=== PATIENT | male | born 1945 | race Caucasian/White ===

== ENCOUNTER 2017-02-03 11:17 | Outpatient (CLI) | payer MEDICARE, OTHER | END 2017-02-03 11:18 | disposition home or self-care (01) | DX: I10 Essential (primary) hypertension (principal); Z12.5 Encounter for screening for malignant neoplasm of prostate | CPT/HCPCS: 36415; 80053; 80061; 85025; G0103 ==

== ENCOUNTER 2017-02-22 15:00 | Outpatient (CLI) | payer MEDICARE, OTHER | END 2017-02-22 15:01 | disposition home or self-care (01) | DX: I71.4 Abdominal aortic aneurysm, without rupture (principal); I77.9 Disorder of arteries and arterioles, unspecified ==

== ENCOUNTER 2018-07-27 14:38 | Outpatient (CLI) | payer MEDICARE, OTHER ==
[2018-07-27 18:45] LABS: BASOPHILS # (AUTO) 0.1 10^3/uL (0.0-0.1); BASOPHILS % (AUTO) 1.1 %; EOSINOPHILS # (AUTO) 0.1 10^3/uL (0.0-0.7); EOSINOPHILS % (AUTO) 2.4 %; HGB - HEMOGLOBIN 12.5 g/dL (14.0-18.0); LYMPHOCYTES # (AUTO) 1.5 10^3/uL (1.5-3.5); LYMPHOCYTES % (AUTO) 26.9 %; MEAN CORPUSCULAR HEMOGLOBIN 32.2 pg (27.0-31.0); MEAN CORPUSCULAR HGB CONC 34.5 g/dL (32.0-36.0); MEAN CORPUSCULAR VOLUME 93.4 fL (80.0-94.0); MEAN PLATELET VOLUME 10.4 fL (7.4-11.4); MONOCYTES # (AUTO) 0.4 10^3/uL (0.0-1.0); MONOCYTES % (AUTO) 7.8 %; NEUTROPHILS # (AUTO) 3.5 10^3/uL (1.5-6.6); NEUTROPHILS % (AUTO) 61.8 %; PLT - PLATELET COUNT 216 10^3/uL (130-450); RED BLOOD COUNT 3.87 10^6/uL (4.70-6.10); RED CELL DISTRIBUTION WIDTH 12.7 % (12.0-15.0); WHITE BLOOD COUNT 5.7 x10^3/uL (4.8-10.8)
[2018-07-27 18:59] LABS: ALBUMIN 4.3 g/dL (3.2-5.5); ALBUMIN/GLOBULIN RATIO 1.6 (1.0-2.2); ALKALINE PHOSPHATASE 66 IU/L (42-121); ALT ALANINE AMINOTRANSFERASE 16 IU/L (10-60); AST ASPARTATE AMINOTRANSFERASE 22 IU/L (10-42); BILIRUBIN,TOTAL 1.1 mg/dL (0.2-1.0); BUN - BLOOD UREA NITROGEN 13 mg/dL (6-20); CALCIUM 9.1 mg/dL (8.5-10.3); CARBON DIOXIDE - CO2 27 mmol/L (21-32); CHLORIDE 104 mmol/L (101-111); CHOL/HDL RATIO 3.3 (<5.0); CHOLESTEROL 157 mg/dL; CREATININE 0.7 mg/dL (0.6-1.2); GFR - MDRD 111 (>89); GLUCOSE 119 mg/dL (70-100); HDL CHOLESTEROL 47 mg/dL; LDL CHOLESTEROL,CALCULATED 97 mg/dL; LDL/HDL RATIO 2.1 (<3.6); SODIUM 137 mmol/L (135-145); VLDL CHOLESTEROL 13 mg/dL
== END 2018-07-27 14:39 | disposition home or self-care (01) ==
LOC: LAB.WCP 14:38
PROVIDERS: ATTEND Family Medicine
DX: I10 Essential (primary) hypertension (principal); E78.5 Hyperlipidemia, unspecified
CPT/HCPCS: 36415; 80053; 80061; 83721; 84443; 85025

== ENCOUNTER 2018-08-14 15:06 | Outpatient (CLI) | payer MEDICARE, OTHER ==
--- NOTE | 2018-08-15 07:52 | Ultrasound Report ---
Reason: AAA Procedure Date: 08/14/2018 Accession Number: [id number] / [id number] Procedure: US - Retroperitoneal Limited CPT Code: FULL RESULT: EXAM: ABDOMINAL AORTIC ULTRASOUND EXAM DATE: 08/14/2018 04:52 PM. CLINICAL HISTORY: AAA. COMPARISON: Abdominal aortic ultrasound 02/22/2017. TECHNIQUE: Real-time scanning was performed with static images obtained. FINDINGS: There are atherosclerotic calcifications of the abdominal aorta and common iliac arteries. Abdominal aorta measurements: Proximal 1.5 cm AP Mid 1.7 x 1.6 cm Distal 4.0 x 3.5 cm, no apparent change given differences in technique. IMPRESSION: Abdominal aortic aneurysm, stable size compared to 02/22/2017. RADIA
== END 2018-08-14 15:07 | disposition home or self-care (01) ==
LOC: DI 15:06
PROVIDERS: ATTEND Family Medicine
DX: I71.4 Abdominal aortic aneurysm, without rupture (principal)
CPT/HCPCS: 76775

== ENCOUNTER 2018-08-15 08:00 | Outpatient (CLI) | payer MEDICARE, OTHER | END 2018-08-15 23:59 | disposition home or self-care (01) | LOC: LAB.WCP 08:00 | PROVIDERS: ATTEND Family Medicine | DX: Z12.5 Encounter for screening for malignant neoplasm of prostate (principal); M10.00 Idiopathic gout, unspecified site | CPT/HCPCS: 36415; 84550; G0103; 84153 ==

== ENCOUNTER 2019-06-12 08:00 | Outpatient (CLI) | payer MEDICARE, OTHER ==
[2019-06-12 18:54] LABS: BASOPHILS # (AUTO) 0.1 10^3/uL (0.0-0.1); BASOPHILS % (AUTO) 0.9 %; EOSINOPHILS # (AUTO) 0.2 10^3/uL (0.0-0.7); EOSINOPHILS % (AUTO) 3.1 %; HGB - HEMOGLOBIN 12.6 g/dL (14.0-18.0); LYMPHOCYTES # (AUTO) 1.3 10^3/uL (1.5-3.5); MEAN CORPUSCULAR HEMOGLOBIN 33.1 pg (27.0-31.0); MEAN CORPUSCULAR HGB CONC 35.4 g/dL (32.0-36.0); MEAN CORPUSCULAR VOLUME 93.4 fL (80.0-94.0); MEAN PLATELET VOLUME 12.5 fL (7.4-11.4); MONOCYTES # (AUTO) 0.5 10^3/uL (0.0-1.0); MONOCYTES % (AUTO) 9.4 %; NEUTROPHILS # (AUTO) 3.6 10^3/uL (1.5-6.6); NEUTROPHILS % (AUTO) 63.4 %; PLT - PLATELET COUNT 230 10^3/uL (130-450); RED BLOOD COUNT 3.81 10^6/uL (4.70-6.10); RED CELL DISTRIBUTION WIDTH 12.5 % (12.0-15.0); WHITE BLOOD COUNT 5.7 x10^3/uL (4.8-10.8)
[2019-06-12 19:24] LABS: ALBUMIN 4.5 g/dL (3.2-5.5); ALBUMIN/GLOBULIN RATIO 1.7 (1.0-2.2); ALKALINE PHOSPHATASE 69 IU/L (42-121); ALT ALANINE AMINOTRANSFERASE 15 IU/L (10-60); AST ASPARTATE AMINOTRANSFERASE 20 IU/L (10-42); BILIRUBIN,TOTAL 1.6 mg/dL (0.2-1.0); BUN - BLOOD UREA NITROGEN 14 mg/dL (6-20); CALCIUM 9.2 mg/dL (8.5-10.3); CARBON DIOXIDE - CO2 25 mmol/L (21-32); CHLORIDE 103 mmol/L (101-111); CHOL/HDL RATIO 3.2 (<5.0); CHOLESTEROL 159 mg/dL; CREATININE 0.7 mg/dL (0.6-1.2); GFR - MDRD 111 (>89); GLUCOSE 97 mg/dL (70-100); HDL CHOLESTEROL 50 mg/dL; LDL CHOLESTEROL,CALCULATED 96 mg/dL; LDL/HDL RATIO 1.9 (<3.6); SODIUM 136 mmol/L (135-145); TOTAL PROTEIN 7.2 g/dL (6.7-8.2); URIC ACID 6.4 mg/dL (2.6-7.2); VLDL CHOLESTEROL 13 mg/dL
== END 2019-06-12 23:59 | disposition home or self-care (01) ==
LOC: LAB.WCP 08:00
PROVIDERS: ATTEND Family Medicine
DX: I10 Essential (primary) hypertension (principal); R97.20 Elevated prostate specific antigen [PSA]; E78.5 Hyperlipidemia, unspecified
CPT/HCPCS: 36415; 80053; 80061; 83721; 84153; 84550; 85025

== ENCOUNTER 2019-08-22 13:38 | Outpatient (CLI) | payer MEDICARE, OTHER ==
--- NOTE | 2019-08-22 15:48 | Ultrasound Report ---
Reason: AAA Procedure Date: 08/22/2019 Accession Number: [id number] / [id number] Procedure: US - Retroperitoneal Limited CPT Code: Final Report FULL RESULT: EXAM: AORTIC DOPPLER ULTRASOUND EXAM DATE: 08/22/2019 02:37 PM. CLINICAL HISTORY: Aneurysm follow-up. COMPARISON: RETROPERITONEAL LIMITED 08/14/2018 4:52 PM. TECHNIQUE: Real-time sonographic imaging of retroperitoneal vascular structures, including color-flow, Doppler flow and spectral analysis was performed by the housekeeping director. Multiple entry level account representative static images were saved for review. FINDINGS: Aorta: Previous described fusiform distal abdominal aortic aneurysm again noted, slightly increased in size. Aorta: Proximal: 2.23 cm sagittal. Mid: 1.90 cm sagittal. 2.0 x 2.0 cm transverse. Distal: 3.96 cm sagittal. 3.9 x 4.4 cm transverse. Iliac Vessels: Visualized proximal common iliac arteries slightly increased in size since previous study, transverse measurements 1.7 x 1.7 cm on the right and 1.8 x 2.0 cm on the left. Other: None. IMPRESSION: Slightly increased size of distal abdominal aortic aneurysm. RADIA
== END 2019-08-22 13:39 | disposition home or self-care (01) ==
LOC: DI 13:38
PROVIDERS: ATTEND Family Medicine
DX: I71.4 Abdominal aortic aneurysm, without rupture (principal)
CPT/HCPCS: 76775

== ENCOUNTER 2022-02-22 16:30 | Outpatient (CLI) | payer MEDICARE, OTHER ==
[2022-02-22 21:00] LABS: BASOPHILS # (AUTO) 0.1 10^3/uL (0.0-0.1); BASOPHILS % (AUTO) 0.7 %; EOSINOPHILS # (AUTO) 0.2 10^3/uL (0.0-0.7); EOSINOPHILS % (AUTO) 2.3 %; HCT - HEMATOCRIT 38.7 % (42.0-52.0); HGB - HEMOGLOBIN 13.2 g/dL (14.0-18.0); LYMPHOCYTES # (AUTO) 1.6 10^3/uL (1.5-3.5); LYMPHOCYTES % (AUTO) 22.5 %; MEAN CORPUSCULAR HEMOGLOBIN 32.3 pg (27.0-31.0); MEAN CORPUSCULAR HGB CONC 34.1 g/dL (32.0-36.0); MEAN CORPUSCULAR VOLUME 94.6 fL (80.0-94.0); MEAN PLATELET VOLUME 12.6 fL (7.4-11.4); MONOCYTES # (AUTO) 0.6 10^3/uL (0.0-1.0); MONOCYTES % (AUTO) 8.5 %; NEUTROPHILS # (AUTO) 4.6 10^3/uL (1.5-6.6); NEUTROPHILS % (AUTO) 65.9 %; PLT - PLATELET COUNT 240 10^3/uL (130-450); RED BLOOD COUNT 4.09 10^6/uL (4.70-6.10); RED CELL DISTRIBUTION WIDTH 12.2 % (12.0-15.0); WHITE BLOOD COUNT 6.9 x10^3/uL (4.8-10.8)
[2022-02-22 21:21] LABS: ALBUMIN 4.5 g/dL (3.2-5.5); ALBUMIN/GLOBULIN RATIO 1.7 (1.0-2.2); ALKALINE PHOSPHATASE 63 IU/L (42-121); ALT ALANINE AMINOTRANSFERASE 17 IU/L (10-60); AST ASPARTATE AMINOTRANSFERASE 21 IU/L (10-42); BILIRUBIN,TOTAL 0.9 mg/dL (0.2-1.0); BUN - BLOOD UREA NITROGEN 22 mg/dL (6-20); CALCIUM 9.6 mg/dL (8.5-10.3); CARBON DIOXIDE - CO2 26 mmol/L (21-32); CHLORIDE 104 mmol/L (101-111); CHOL/HDL RATIO 3.5 (<5.0); CHOLESTEROL 171 mg/dL; CREATININE 0.8 mg/dL (0.6-1.2); GFR - MDRD 94 (>89); GLUCOSE 91 mg/dL (70-100); HDL CHOLESTEROL 49 mg/dL; LDL CHOLESTEROL,CALCULATED 86 mg/dL; LDL/HDL RATIO 1.8 (<3.6); SODIUM 138 mmol/L (135-145); TOTAL PROTEIN 7.2 g/dL (6.7-8.2); TRIGLYCERIDES 178 mg/dL; URIC ACID 6.4 mg/dL (2.6-7.2); VLDL CHOLESTEROL 36 mg/dL
== END 2022-02-22 16:31 | disposition home or self-care (01) ==
LOC: LAB.N 16:30
PROVIDERS: ATTEND Family Medicine
DX: I10 Essential (primary) hypertension (principal); E78.5 Hyperlipidemia, unspecified; R97.20 Elevated prostate specific antigen [PSA]; M10.9 Gout, unspecified
CPT/HCPCS: 36415; 80053; 80061; 83721; 84153; 84550; 85025

== ENCOUNTER 2023-09-04 13:05 | Outpatient (CLI) | payer MEDICARE, OTHER ==
[2023-09-04 18:06] LABS: BASOPHILS # (AUTO) 0.1 10^3/uL (0.0-0.1); BASOPHILS % (AUTO) 1.2 %; EOSINOPHILS # (AUTO) 0.3 10^3/uL (0.0-0.7); EOSINOPHILS % (AUTO) 3.6 %; HCT - HEMATOCRIT 37.7 % (42.0-52.0); HGB - HEMOGLOBIN 12.6 g/dL (14.0-18.0); LYMPHOCYTES # (AUTO) 1.3 10^3/uL (1.5-3.5); LYMPHOCYTES % (AUTO) 18.2 %; MEAN CORPUSCULAR HGB CONC 33.4 g/dL (32.0-36.0); MEAN CORPUSCULAR VOLUME 95.7 fL (80.0-94.0); MEAN PLATELET VOLUME 11.9 fL (7.4-11.4); MONOCYTES # (AUTO) 0.6 10^3/uL (0.0-1.0); NEUTROPHILS # (AUTO) 4.7 10^3/uL (1.5-6.6); NEUTROPHILS % (AUTO) 67.9 %; PLT - PLATELET COUNT 250 10^3/uL (130-450); RED BLOOD COUNT 3.94 10^6/uL (4.70-6.10); RED CELL DISTRIBUTION WIDTH 12.3 % (12.0-15.0); WHITE BLOOD COUNT 6.9 x10^3/uL (4.8-10.8)
[2023-09-04 18:25] LABS: ALBUMIN 4.6 g/dL (3.2-5.5); ALKALINE PHOSPHATASE 77 IU/L (42-121); ALT ALANINE AMINOTRANSFERASE 12 IU/L (10-60); AST ASPARTATE AMINOTRANSFERASE 16 IU/L (10-42); BILIRUBIN,TOTAL 1.3 mg/dL (0.2-1.0); BUN - BLOOD UREA NITROGEN 19 mg/dL (6-20); CALCIUM 9.7 mg/dL (8.5-10.3); CARBON DIOXIDE - CO2 31 mmol/L (21-32); CHLORIDE 103 mmol/L (101-111); CHOL/HDL RATIO 2.8 (<5.0); CHOLESTEROL 149 mg/dL; CREATININE 0.9 mg/dL (0.6-1.3); GFR - MDRD 82 (>89); GLUCOSE 97 mg/dL (74-104); HDL CHOLESTEROL 53 mg/dL; LDL CHOLESTEROL,CALCULATED 80 mg/dL; LDL/HDL RATIO 1.5 (<3.6); POTASSIUM 4.3 mmol/L (3.5-4.5); SODIUM 138 mmol/L (135-145); TOTAL PROTEIN 6.9 g/dL (6.4-8.9); TRIGLYCERIDES 78 mg/dL (48-352); VLDL CHOLESTEROL 16 mg/dL
[2023-09-04 19:10] LABS: THYROID STIMULATING HORMONE 2.22 uIU/mL (0.34-5.60)
== END 2023-09-04 13:06 | disposition home or self-care (01) ==
LOC: LAB.N 13:05
PROVIDERS: ATTEND Family Medicine
DX: I10 Essential (primary) hypertension (principal); E78.5 Hyperlipidemia, unspecified; M10.00 Idiopathic gout, unspecified site; R97.20 Elevated prostate specific antigen [PSA]
CPT/HCPCS: 36415; 80053; 80061; 83721; 84153; 84154; 84443; 85025

== ENCOUNTER 2023-09-25 13:31 | Outpatient (CLI) | payer MEDICARE, OTHER ==
--- NOTE | 2023-09-25 16:18 | XRAY Report ---
PROCEDURE: Knee 3 View LT INDICATIONS: EFFUSION OF LEFT KNEE TECHNIQUE: 3 views of the knee(s) were acquired. COMPARISON: None. FINDINGS: Bones: Moderate to severe degenerative changes, particularly the medial compartment. Patellar and tib ial tuberosity enthesopathy. Periarticular ossifications. Scattered osteophytes Soft tissues: Significant vascular calcifications. Small joint effusion. Suspected intra-articular sm all loose bodies. IMPRESSION: Moderate to severe degenerative changes, particularly the medial compartment. Periarticular ossificat ions and osteophytes. Significant enthesopathy of the extensor mechanism. Mild joint effusion. Suspec rosanne intra-articular loose bodies. Significant vascular calcifications. . Reviewed by: Tony Daniel MD on 09/25/2023 4:17 PM PST Approved by: Tony Daniel MD on 09/25/2023 4:17 PM PST Station ID: [id number]
== END 2023-09-25 13:32 | disposition home or self-care (01) ==
LOC: LAB.N 13:31 → DI.N 13:32
PROVIDERS: ATTEND Family Medicine
DX: M17.12 Unilateral primary osteoarthritis, left knee (principal); M25.462 Effusion, left knee; M76.9 Unspecified enthesopathy, lower limb, excluding foot

== ENCOUNTER 2023-12-14 12:15 | Outpatient (CLI) | payer MEDICARE, OTHER ==
--- NOTE | 2023-12-15 09:03 | Ultrasound Report ---
PROCEDURE: Arterial Duplex Lwr Ext BL INDICATIONS: PVD TECHNIQUE: Color and pulse Doppler interrogation was performed of both lower extremity arterial systems, with im age documentation. COMPARISON: None FINDINGS: Right lower extremity: Common femoral artery: 105.9 cm/sec, with triphasic flow. Deep femoral artery: 142.4 cm/sec, with triphasic flow. Proximal superficial femoral artery: 115.0 cm/sec, with biphasic flow. Mid superficial femoral artery: 60.3 cm/sec, with triphasic flow. Distal superficial femoral artery: 62.3 cm/sec, with biphasic flow. Popliteal artery: 24.2 cm/sec, with biphasic flow. Posterior tibial artery: 61.2 cm/sec, with monophasic, low resistance flow. Anterior tibial artery/dorsalis pedis: 44.5/79.3 cm/sec, with monophasic/monophasic, low resistance flow. Serna-scale imaging description: There is diffuse plaque. There is severe popliteal stenotic disease t his results in monophasic low resistance flow in the distal runoff vessels. Left lower extremity: Common femoral artery: 105.1 cm/sec, with triphasic flow. Deep femoral artery: 79.0 cm/sec, with biphasic flow. Proximal superficial femoral artery: 68.2 cm/sec, with triphasic flow. Mid superficial femoral artery: 83.5 cm/sec, with triphasic flow. Distal superficial femoral artery: 108.1 cm/sec, with triphasic flow. Popliteal artery: 44.7 cm/sec, with triphasic flow. Posterior tibial artery: 68.6 cm/sec, with triphasic flow. Anterior tibial artery/dorsalis pedis: 66.0/29.3 cm/sec, with triphasic/biphasic flow. Serna-scale imaging description: Diffuse plaque. Normal waveforms. No hemodynamically significant oz nosis suspected. IMPRESSION: 1. There is diffuse plaque bilaterally. 2. No findings suggesting inflow stenosis. 3. 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 4. No significant stenosis identified on the left. Reviewed by: Srinath Hunter MD on 12/15/2023 9:02 AM PST Approved by: Srinath Hunter MD on 12/15/2023 9:02 AM PST Station ID: [id number]
== END 2023-12-14 12:16 | disposition home or self-care (01) ==
LOC: DI 12:15
PROVIDERS: ATTEND Family Medicine
DX: I73.9 Peripheral vascular disease, unspecified (principal)
CPT/HCPCS: 93925